=== PATIENT | male | born 1990 | race Caucasian/White ===

== ENCOUNTER 2018-10-08 19:26 | Emergency (ER) | payer OTHER ==
[2018-10-08 19:31] VITALS: BP 128/78; PULSE 91; TEMP 98.2; BMI 27.1
--- NOTE | 2018-10-08 19:59 | PDOC ---
History of Present Illness - General Chief Complaint: Diarrhea Stated Complaint: DIARRHEA,ABD CRAMPS Time Seen by Provider: 10/08/18 19:43 - History of Present Illness Initial Comments: 10/08/18 19:58 28-year-old male without comorbidities presents for evaluation of diarrhea 5 days without systemic symptoms he does have associated abdominal pain. Past History - Past Medical History Allergies/Adverse Reactions: Allergies Allergy/AdvReac Type Severity Reaction Status Date / Time No Known Allergies Allergy Verified 10/08/18 19:31 Home Medications: Ambulatory Orders NK [No Known Home Medication] 10/08/18 COPD: No - Suicide/Smoking/Psychosocial Hx Smoking History: Never smoked Review of Systems - Review of Systems Constitutional: No: Fever ABD/GI: Yes: Diarrhea. No: Blood Streaked Bowels, Nausea, Rectal Bleeding, Vomiting *Physical Exam - Vital Signs Last Vital Signs Temp Pulse Resp BP Pulse Ox 98.2 F 91 H 18 128/78 100 10/08/18 19:29 10/08/18 19:29 10/08/18 19:29 10/08/18 19:29 10/08/18 19:29 - Physical Exam Comments: 10/08/18 19:58 HEAD: NC/AT EYES: Conjuntiva clear Ears: Canals and TM's normal NOSE: No d/c THROAT: Moist mucous membrances, oral pharanx clear, uvula midline NECK: Supple without adenopathy CARDIAC: S1 S2 LUNGS: CTA Full and Equal breath sounds ABDOMEN: Left-sided tenderness no rebound all of the areas nontender MS: Full ROM in all joints without edema NEUROLOGIC: No gross sensory or motor deficits, NVID SKIN: Normal color and temperature no lesions or rashes Moderate Sedation - Procedure Monitoring Vital Signs: Procedure Monitoring Vital Signs Temperature 98.2 F 10/08/18 19:29 Pulse Rate 91 H 10/08/18 19:29 Respiratory Rate 18 10/08/18 19:29 Blood Pressure 128/78 10/08/18 19:29 O2 Sat by Pulse Oximetry (%) 100 10/08/18 19:29 ED Treatment Course - RADIOLOGY Radiology Studies Ordered: Category Date Time Status ABDOMEN & PELVIS CT WITH CONTR [CT] Stat CT Scan 10/08/18 19:53 Ordered Medical Decision Making - Medical Decision Making 10/08/18 19:59 Patient transferred to main emergency room for further workup *DC/Admit/Observation/Transfer Diagnosis at time of Disposition: Abdominal tenderness - Referrals - Patient Instructions - Post Discharge Activity
[2018-10-08 20:09] LABS: BASO % 0.8 % (0-2.0); HEMATOCRIT 42.2 % (35.4-49); HEMOGLOBIN 15.3 GM/dL (11.7-16.9); LYMPH % 38.1 % (8-40); MCH 33.6 pg (25.7-33.7); MCHC 36.2 g/dl (32.0-35.9); MEAN CELL VOLUME 92.7 fl (80-96); MEAN PLT VOLUME 9.1 fl (7.5-11.1); MONO % 12.3 % (3.8-10.2); NEUT % 46.8 % (42.8-82.8); PLATELET COUNT 236 K/MM3 (134-434); RBC 4.55 M/mm3 (4.00-5.60); RDW 12.1 % (11.9-15.9)
--- NOTE | 2018-10-08 20:13 | PDOC ---
*Physical Exam - Vital Signs Last Vital Signs Temp Pulse Resp BP Pulse Ox 98.2 F 91 H 18 128/78 100 10/08/18 19:29 10/08/18 19:29 10/08/18 19:29 10/08/18 19:29 10/08/18 19:29 <HallPaula mark - Last Filed: 10/09/18 00:15> - Vital Signs Last Vital Signs Temp Pulse Resp BP Pulse Ox 98.2 F 91 H 18 128/78 100 10/08/18 19:29 10/08/18 19:29 10/08/18 19:29 10/08/18 19:29 10/08/18 19:29 - Physical Exam General Appearance: Yes: Nourished, Appropriately Dressed. No: Apparent Distress Gastrointestinal/Abdominal: positive: Normal Bowel Sounds, Tender (LLQ), Flat, Soft. negative: Increased Bowel Sounds, Guarding, Rebound Integumentary: positive: Normal Color, Dry, Warm Neurologic: positive: Fully Oriented, Alert, Normal Mood/Affect, Normal Response <Destiny De La Fuente - Last Filed: 10/09/18 01:06> ED Treatment Course - LABORATORY CBC & Chemistry Diagram: 10/08/18 20:00 10/08/18 21:58 - ADDITIONAL ORDERS Additional order review: Laboratory Results 10/08/18 10/08/18 10/08/18 21:58 20:45 20:20 Sodium 140 Cancelled Cancelled Potassium 3.7 Cancelled Cancelled Chloride 106 Cancelled Cancelled Carbon Dioxide 28 Cancelled Cancelled Anion Gap 6 L Cancelled Cancelled BUN 10 Cancelled Cancelled Creatinine 0.9 Cancelled Cancelled Creat Clearance w eGFR > 60 Cancelled Cancelled Random Glucose 95 Cancelled Cancelled Calcium 8.7 Cancelled Cancelled Total Bilirubin 0.5 Cancelled Cancelled AST 16 Cancelled Cancelled ALT 23 Cancelled Cancelled Alkaline Phosphatase 58 Cancelled Cancelled Total Protein 7.1 Cancelled Cancelled Albumin 4.2 Cancelled Cancelled Lipase Urine Color Urine Appearance Urine pH Ur Specific Pierce Urine Protein Urine Glucose (UA) Urine Ketones Urine Blood Urine Nitrite Urine Bilirubin Urine Urobilinogen Ur Leukocyte Esterase 10/08/18 10/08/18 20:15 20:00 Sodium Cancelled Potassium Cancelled Chloride Cancelled Carbon Dioxide Cancelled Anion Gap Cancelled BUN Cancelled Creatinine Cancelled Creat Clearance w eGFR Cancelled Random Glucose Cancelled Calcium Cancelled Total Bilirubin Cancelled AST Cancelled ALT Cancelled Alkaline Phosphatase Cancelled Total Protein Cancelled Albumin Cancelled Lipase Cancelled Urine Color Straw Urine Appearance Clear Urine pH 6.0 Ur Specific Pierce 1.002 L Urine Protein Negative Urine Glucose (UA) Negative Urine Ketones Negative Urine Blood Negative Urine Nitrite Negative Urine Bilirubin Negative Urine Urobilinogen Negative Ur Leukocyte Esterase Negative 10/08/18 20:00 RBC 4.55 MCV 92.7 MCHC 36.2 H RDW 12.1 MPV 9.1 Neutrophils % 46.8 Lymphocytes % 38.1 Monocytes % 12.3 H Eosinophils % 2.0 Basophils % 0.8 - Medications Given in the ED: ED Medications Discontinued Medications Generic Name Dose Route Start Last Admin Trade Name Freq PRN Reason Stop Dose Admin Sodium Chloride 1,000 mls @ 1,000 mls/hr 10/08/18 23:13 10/08/18 23:43 Normal Saline - IV 10/09/18 00:12 1,000 mls/hr ASDIR STA Administration <Paula Hall - Last Filed: 10/09/18 00:15> - LABORATORY CBC & Chemistry Diagram: 10/08/18 20:00 10/08/18 21:58 - ADDITIONAL ORDERS Additional order review: 10/08/18 20:00 RBC 4.55 MCV 92.7 MCHC 36.2 H RDW 12.1 MPV 9.1 Neutrophils % 46.8 Lymphocytes % 38.1 Monocytes % 12.3 H Eosinophils % 2.0 Basophils % 0.8 <Destiny De La Fuente - Last Filed: 10/09/18 01:06> Medical Decision Making - Medical Decision Making 10/09/18 00:15 Patient Name: SARTHAK FOWLER THIS IS A PRELIMINARY REPORT FROM [facility] DATE OF SERVICE: 2018-10-08 23:05:59 IMAGES: [id number] EXAM: ABDOMEN \T\ PELVIS CT WITH CONTR History: 28-year-old male evaluate for diverticulitis Comparison: None Procedure: CT scan abdomen and pelvis, dated October 08, 2018 . Axial images obtained followed by coronal and sagittal reconstructions. Intravenous contrast utilized, 100 mL Omnipaque . Findings: The liver, spleen, pancreas, adrenal glands and kidneys unremarkable. Gallbladder gallbladder fossa normal in appearance. No ureteral or bladder abnormalities noted. Prostate gland and seminal vesicles normal configuration. Rectum and perirectal space unremarkable. No large or small bowel inflammatory changes evident. Terminal ileum and appendix within normal limits. Small indeterminate mesenteric lymph nodes noted. No abdominal wall defects present. The abdominal aorta/branch vessels/IVC normal configuration. Impression: 1. No evidence of GI tract obstruction or inflammatory change. Normal appearance terminal ileum and appendix. No diverticular change large bowel noted. 2. No evidence of tract obstruction or inflammatory change. 3. Indeterminate mesenteric lymph nodes present. <Paula Hall - Last Filed: 10/09/18 00:15> - Medical Decision Making 10/08/18 20:12 Pt transferred from [facility] for 5 days of diarrhea with associated LLQ tenderness. Labs drawn in [facility]. Patient pending CT abdomen. 10/09/18 00:22 CT with no acute findings. See above. Pt feels better after fluids DC home with symptomatic treatment Most likely viral gastroenteritis Pt to f/u with PCP this week I discussed the physical exam findings, ancillary test results and final diagnoses with the patient. I answered all of the patient's questions. The patient was satisfied with the care received and felt comfortable with the discharge plan and treatment plan. The Patient agrees to follow up with the primary care physician/specialist within 24-72 hours. Return precautions were given. <Destiny De La Fuente - Last Filed: 10/09/18 01:06> *DC/Admit/Observation/Transfer <Paula Hall - Last Filed: 10/09/18 00:15> - Discharge Dispostion Decision to Admit order: No <Destiny De La Fuente - Last Filed: 10/09/18 01:06> Diagnosis at time of Disposition: Diarrhea Qualifiers: Diarrhea type: unspecified type Qualified Code(s): R19.7 - Diarrhea, unspecified - Discharge Dispostion Disposition: HOME Condition at time of disposition: Stable - Referrals Referrals: Camilo Mckeon MD [Staff Physician] - - Patient Instructions Printed Discharge Instructions: DI for Diarrhea and Traveler's Diarrhea -- Adult Additional Instructions: You have diarrhea. Your CT scan was normal today and did not show evidence of diverticulitis Avoid all dairy products until 48 hours after the diarrhea has resolved. Eat a bland diet including apple sauce, toast, bananas, and plain rice Drink plenty of fluids including pedialyte, watered down juices and water Follow up with your primary care doctor this week Return to the ED if you develop fevers, abdominal pain, worsening vomiting, or if you have any changes in your symptoms. - Post Discharge Activity Forms/Work/School Notes: Back to Work
[2018-10-08 20:27] LABS: URINE APPEARANCE CLEAR; URINE BILIRUBIN NEGATIVE (<2.0 mg/dL); URINE COLOR STRAW; URINE GLUCOSE (UA) NEGATIVE (NEGATIVE); URINE KETONE NEGATIVE (NEGATIVE); URINE LEUK ESTERASE NEGATIVE (NEGATIVE); URINE NITRITE NEGATIVE (NEGATIVE); URINE PROTEIN NEGATIVE (NEGATIVE); URINE UROBILINOGEN NEGATIVE mg/dL (0.2-1.0)
[2018-10-08 22:24] LABS: ALBUMIN 4.2 g/dl (3.4-5.0); ALK PHOS 58 U/L (45-117); ANION GAP 6 MMOL/L (8-16); BILIRUBIN,TOTAL 0.5 mg/dL (0.2-1); BLOOD UREA NITROGEN 10 mg/dL (7-18); CALCIUM 8.7 mg/dL (8.5-10.1); CHLORIDE 106 mmol/L (98-107); CO2 28 mmol/L (21-32); CREATININE 0.9 mg/dL (0.55-1.3); GLUCOSE,RANDOM 95 mg/dL (74-106); POTASSIUM 3.7 mmol/L (3.5-5.1); SGOT/AST 16 U/L (15-37); SGPT/ALT 23 U/L (13-61); SODIUM 140 mmol/L (136-145); TOT PROT 7.1 g/dl (6.4-8.2)
[2018-10-08] MEDS ORDERED: SODIUM CHLORIDE 1,000 ML IV STA (23:13)
== END 2018-10-09 00:47 | disposition home or self-care (01) ==
LOC: JERFT 19:26 → JER 19:26
PROC: 3E0337Z Introduction of Electrolytic and Water Balance Substance into Peripheral Vein, Percutaneous Approach (ICD-10-PCS; principal; 2018-10-08)
DX: R19.7 Diarrhea, unspecified (principal)
CPT/HCPCS: 36415; 74177-TC; 80053; 81003; 85025; 96360; 99281-25; J7030

== ENCOUNTER 2023-10-21 07:06 | Emergency (ER) | payer BC, OTHER ==
[2023-10-21 07:14] VITALS: BP 138/83; PULSE 86; RESP 17; TEMP 98.7; BMI 29.2
[2023-10-21] MEDS ORDERED: IBUPROFEN 600 MG TABLET (FP) PO ONE (07:16)
[2023-10-21] MEDS: IBUPROFEN 600 MG TABLET (FP) PO ONE (07:18)
== END 2023-10-21 07:51 | disposition home or self-care (01) ==
LOC: FER 07:06
DX: R07.9 Chest pain, unspecified (principal)
CPT/HCPCS: 71046-TC-FY; 93005; 99284-25

== ENCOUNTER 2024-04-06 08:49 | Observation (INO) | payer BC ==
[2024-04-06] MEDS ORDERED: dilTIAZem HCL 50 MG/10 ML - 10 ML VIAL ONE (09:27)
[2024-04-06] MEDS: dilTIAZem HCL 50 MG/10 ML - 10 ML VIAL IVPUSH ONE ×2 (09:30→10:55)
[2024-04-06] MEDS: SODIUM CHLORIDE 0.9% 500 ML INFUS.BAG IV ONE (09:40)
[2024-04-06 09:42] LABS: HEMATOCRIT 51.3 % (35.4-49); MCH 30.9 pg (25.7-33.7); MCHC 33.2 g/dl (32.0-35.9); MEAN CELL VOLUME 93.1 fl (80-96); MEAN PLT VOLUME 9.3 fl (7.5-11.1); PLATELET COUNT 265.1 10^3/uL (134-434); RBC 5.51 10^6/uL (4.00-5.60); RDW 13.2 % (11.9-15.9); WHITE BLOOD COUNT 6.1 10^3/uL (4.0-10.8)
[2024-04-06 09:48] LABS: INR 0.99 (0.83-1.09); PROTHROMBIN TIME (PATIENT) 11.3 SEC (9.7-13.0)
[2024-04-06 09:51] LABS: ACTIVATED PTT 34.5 SECONDS (25.2-36.5)
[2024-04-06 09:52] LABS: PLATELET ESTIMATE ADEQUATE
[2024-04-06 09:54] LABS: ALBUMIN 5.3 g/dl (3.4-5.0); ALK PHOS 57 U/L (45-117); ANION GAP 9 mmol/L (4-13); BILIRUBIN,TOTAL 0.9 mg/dl (0.2-1); CALCIUM 10.4 mg/dl (8.5-10.1); CHLORIDE 104 mmol/L (98-107); CHOLESTEROL 200 mg/dL (50-200); CO2 26 mmol/L (21-32); CREATININE 1.1 mg/dl (0.6-1.3); GLUCOSE,RANDOM 101 mg/dl (74-106); HDL CHOLESTEROL 38 mg/dL (40-60); LDL CHOLESTEROL (ONLY DFH) 143 mg/dL (5-100); MAGNESIUM 2.2 mg/dL (1.8-2.4); POTASSIUM 4.1 mmol/L (3.5-5.1); SGOT/AST 19 U/L (15-37); SGPT/ALT 28 U/L (7-52); SODIUM 139 mmol/L (136-145); TOT PROT 7.8 g/dl (6.4-8.2)
[2024-04-06] MEDS ORDERED: METOPROLOL TARTRATE 25 MG TABLET (FP) ONE (10:19)
[2024-04-06] MEDS: METOPROLOL TARTRATE 25 MG TABLET (FP) PO ONE ×2 (10:25→16:17)
[2024-04-06 15:13] VITALS: BMI 29.5
[2024-04-06] MEDS: METOPROLOL TARTRATE 5 MG/5 ML VIAL IVPUSH ONE ×3 (15:53→20:24)
[2024-04-06] MEDS ORDERED: METOPROLOL TARTRATE 5 MG/5 ML VIAL IVPUSH PRN (18:09)
[2024-04-06] MEDS ORDERED: ALPRAZolam 1 MG TABLET PO PRN (18:13)
[2024-04-06] MEDS: LACTATED RINGERS SOLUTION 1,000 ML/1,000 ML INFUS.BAG IV SCH (18:20)
[2024-04-06] MEDS ORDERED: ALPRAZolam 0.25 MG TABLET PO PRN (18:32)
[2024-04-06] MEDS: METOPROLOL TARTRATE 25 MG TABLET (FP) PO SCH (20:27)
[2024-04-06] MEDS ORDERED: METOPROLOL TARTRATE 25 MG TABLET (FP) PO SCH ×2 (22:00)
[2024-04-06] MEDS ORDERED: METOPROLOL TARTRATE 50 MG TABLET (FP) PO SCH (22:00)
[2024-04-07 09:02] LABS: POTASSIUM 4.3 mmol/L (3.5-5.1)
[2024-04-07 09:10] LABS: BLOOD UREA NITROGEN 13.6 mg/dL (7-18); CALCIUM 9.3 mg/dL (8.5-10.1)
[2024-04-07 09:13] LABS: CREATININE 0.9 mg/dL (0.55-1.3); PHOSPHOROUS 3.1 mg/dL (2.5-4.9)
[2024-04-07 09:15] LABS: BILIRUBIN,TOTAL 0.9 mg/dL (0.2-1)
[2024-04-07] MEDS: ENOXAPARIN NA (PORCINE) 40 MG/0.4 ML DISP.SYRIN SQ SCH (09:16)
[2024-04-07 09:21] LABS: BASO % 0.4 % (0-2.0); EOS % 0.7 % (0-4.5); HEMATOCRIT 43.6 % (35.4-49); HEMOGLOBIN 15.2 GM/dL (11.7-16.9); LYMPH % 30.1 % (8-40); MCH 31.9 pg (25.7-33.7); MCHC 34.8 g/dl (32.0-35.9); MEAN CELL VOLUME 91.9 fl (80-96); MEAN PLT VOLUME 9.3 fl (7.5-11.1); MONO % 9.6 % (3.8-10.2); NEUT % 59.2 % (42.8-82.8); PLATELET COUNT 245 10^3/uL (134-434); RBC 4.75 M/mm3 (4.00-5.60); RDW 12.6 % (11.9-15.9); WHITE BLOOD COUNT 6.8 K/mm3 (4.0-10.0)
[2024-04-07] MEDS ORDERED: METOPROLOL TARTRATE 25 MG TABLET (FP) PO SCH (10:00)
[2024-04-07 11:15] VITALS: RESP 16
[2024-04-07 13:03] LABS: METHADONE, UR NEGATIVE (NEGATIVE); OPIATES, URI NEGATIVE (NEGATIVE); PHENCYCLIDINE,URINE NEGATIVE (NEGATIVE); URINE BARBITURATES NEGATIVE (NEGATIVE)
[2024-04-07 13:07] LABS: COCAINE, UR NEGATIVE (NEGATIVE); URINE AMPHETAMINES NEGATIVE (NEGATIVE); URINE BENZODIAZEPINES NEGATIVE (NEGATIVE)
[2024-04-07 15:14] VITALS: BP 109/70; PULSE 79; TEMP 98.1
[2024-04-07 15:20] LABS: MAGNESIUM 2.1 mg/dL (1.8-2.4)
== END 2024-04-07 16:58 | disposition home or self-care (01) ==
LOC: FER 08:49 → UNDOADMOB 10:16 → FM/S 10:16 → INTOOBSV 10:16 → FM/S 14:27 → J4W 14:27
PROVIDERS: ADMIT Internal Medicine
PROC: 3E033GC Introduction of Other Therapeutic Substance into Peripheral Vein, Percutaneous Approach (ICD-10-PCS; principal; 2024-04-06)
PROC: 3E0337Z Introduction of Electrolytic and Water Balance Substance into Peripheral Vein, Percutaneous Approach (ICD-10-PCS; 2024-04-06)
DX: I48.91 Unspecified atrial fibrillation (principal); R00.2 Palpitations; I48.92 Unspecified atrial flutter; G47.00 Insomnia, unspecified
CPT/HCPCS: 36415; 71045-TC-FY; 80053; 80061; 80307; 83735; 84100; 84439; 84443; 84481; 84484; 85025; 85027; 85610; 85730; 86376; 86800; 93005; 93010; 93306-TC; 99291; G0378